=== PATIENT | female | born 1995 | race Caucasian/White ===

== ENCOUNTER 2019-09-03 16:11 | Outpatient (CLI) | payer OTHER ==
[~2019-09-03] VITALS: Ht 172.7 cm; Wt 71.8 kg
[2019-09-03 18:20] LABS: MICROSCOPIC INDICATED
== END 2019-09-03 17:25 | disposition home or self-care (01) ==
LOC: LDOP 16:11
PROVIDERS: ATTEND Obstetrics & Gynecology
DX: O36.8130 Decreased fetal movements, third trimester, not applicable or unspecified (principal); Z3A.29 29 weeks gestation of pregnancy
CPT/HCPCS: 59025; 76815; 81001; 87086; 99201; G0463

== ENCOUNTER 2019-11-06 23:55 | Outpatient (CLI) | payer OTHER ==
[~2019-11-06] VITALS: Ht 172.7 cm; Wt 80.0 kg
== END 2019-11-07 01:45 | disposition home or self-care (01) ==
LOC: LDOP 23:55
PROVIDERS: ATTEND Obstetrics & Gynecology
DX: O26.893 Other specified pregnancy related conditions, third trimester (principal); R10.9 Unspecified abdominal pain; Z3A.39 39 weeks gestation of pregnancy
CPT/HCPCS: 59025; 99211; G0463

== ENCOUNTER 2019-11-08 15:02 | Inpatient (IN) | payer OTHER ==
[~2019-11-08] VITALS: Ht 172.7 cm; Wt 80.0 kg
[2019-11-08 16:06] VITALS: BP 136/68
[2019-11-08] MEDS ORDERED: OXYTOCIN 30U/ 0.9% NaCL 500ML 500 ML IV ONE (17:04)
[2019-11-08] MEDS ORDERED: D5%-LACTATED RINGERS 1,000 ML IV SCH (17:04)
[2019-11-08] MEDS: LACTATED RINGERS 1,000 ML IV SCH ×2 (17:04→18:35)
[2019-11-08] MEDS ORDERED: MISOPROSTOL 200 MCG TABLET ONE (17:21)
[2019-11-08] MEDS ORDERED: NEWBORN KIT ONE (17:21)
[2019-11-08] MEDS ORDERED: LIDOCAINE 1%, 20ML ONE ×2 (17:21→19:34)
[2019-11-08] MEDS ORDERED: ONDANSETRON 2MG/ML, 2ML IVPush PRN (17:30)
[2019-11-08] MEDS ORDERED: CALCIUM CARBONATE 500 MG TAB.CHEW PO PRN ×2 (17:30→20:00)
[2019-11-08] MEDS ORDERED: TERBUTALINE 1 MG/ML, 1ML IVPush PRN (17:30)
[2019-11-08] MEDS ORDERED: FENTANYL PF 100 MCG/2ML IVPush PRN (17:30)
[2019-11-08] MEDS ORDERED: FENTANYL PF 100 MCG/2ML IV PRN (17:30)
[2019-11-08] MEDS ORDERED: TERBUTALINE 1 MG/ML, 1ML SQ PRN (17:30)
[2019-11-08 17:52] LABS: MEAN CORPUSCULAR HEMOGLOBIN 30.2 pg (27.0-34.8); MEAN CORPUSCULAR HGB CONC 33.1 g/dL (32.4-35.8); MEAN CORPUSCULAR VOLUME 91.2 fL (80-100); MEAN PLATELET VOLUME 8.1 fL (7.4-10.4); PLATELET COUNT 255 x10^3/uL (130-400); RED BLOOD COUNT 4.15 x10^6/uL (3.82-5.3); RED CELL DISTRIBUTION WIDTH 13.5 % (9.6-15.2)
[2019-11-08] MEDS ORDERED: OXYTOCIN 30U/ 0.9% NaCL 500ML 500 ML ONE (18:02)
[2019-11-08 18:26] LABS: BASOPHILS # (AUTO) 0.03 x10^3/uL (0-0.1); BASOPHILS % (AUTO) 0 % (0-1); EOSINOPHILS % (AUTO) 0 % (1-7); LYMPHOCYTES # (AUTO) 1.55 x10^3/uL (1-3.4); LYMPHOCYTES % (AUTO) 10 % (22-44); MD SCAN; MONOCYTES # (AUTO) 0.62 x10^3/uL (0.2-0.8); MONOCYTES % (AUTO) 4 % (2-9); NEUTROPHILS # (AUTO) 13.68 x10^3/uL (1.8-6.8); NEUTROPHILS % (AUTO) 86 % (42-75)
[2019-11-08] MEDS: OXYTOCIN 30U/ 0.9% NaCL 500ML 500 ML IV SCH (19:49)
[2019-11-08] MEDS ORDERED: SIMETHICONE 80 MG CHEW TAB PO PRN (20:00)
[2019-11-08] MEDS ORDERED: ONDANSETRON 2MG/ML, 2ML IV PRN (20:00)
[2019-11-08] MEDS ORDERED: MISOPROSTOL 200 MCG TABLET PO PRN (20:00)
[2019-11-08] MEDS ORDERED: OXYcodone/APAP 5/325MG TABLET PO PRN ×2 (20:00)
[2019-11-08] MEDS ORDERED: METHYLERGONOVINE 0.2 MG/ML IM PRN (20:00)
[2019-11-08 21:45] VITALS: BP 105/67
[2019-11-09 01:20] VITALS: BP 103/65
[2019-11-09] MEDS: IBUPROFEN 600 MG TABLET PO PRN ×2 (01:28→12:03)
[2019-11-09 02:08] LABS: MEAN CORPUSCULAR HEMOGLOBIN 30.4 pg (27.0-34.8); MEAN CORPUSCULAR VOLUME 92.2 fL (80-100); MEAN PLATELET VOLUME 8.2 fL (7.4-10.4); PLATELET COUNT 231 x10^3/uL (130-400); RED BLOOD COUNT 3.72 x10^6/uL (3.82-5.3); RED CELL DISTRIBUTION WIDTH 13.2 % (9.6-15.2)
[2019-11-09 02:33] LABS: BASOPHILS # (AUTO) 0.13 x10^3/uL (0-0.1); BASOPHILS % (AUTO) 1 % (0-1); EOSINOPHILS % (AUTO) 0 % (1-7); LYMPHOCYTES % (AUTO) 8 % (22-44); MD SCAN; MONOCYTES # (AUTO) 0.82 x10^3/uL (0.2-0.8); MONOCYTES % (AUTO) 4 % (2-9); NEUTROPHILS # (AUTO) 18.69 x10^3/uL (1.8-6.8); NEUTROPHILS % (AUTO) 87 % (42-75)
[2019-11-09 05:30] VITALS: BP 100/61
[2019-11-09] MEDS: OXYTOCIN 30U/ 0.9% NaCL 500ML 500 ML IV SCH ×2 (05:49→15:49)
[2019-11-09 07:45] VITALS: BP 102/68
[2019-11-09] MEDS: DOCUSATE 100 MG CAPSULE PO PRN (07:59)
[2019-11-09] MEDS: PRENATAL VIT/IRON/FA 1 EACH TABLET PO SCH (07:59)
[2019-11-09 12:45] VITALS: BP 109/68
[2019-11-09 17:30] VITALS: BP 106/69
[2019-11-09 20:00] VITALS: BP 106/54
[2019-11-10 08:30] VITALS: BP 122/75
[2019-11-10] MEDS: PRENATAL VIT/IRON/FA 1 EACH TABLET PO SCH (09:00)
[2019-11-10] MEDS: DOCUSATE 100 MG CAPSULE PO PRN (09:30)
[2019-11-10] MEDS ORDERED: IBUP-1222 PO (15:01)
== END 2019-11-10 16:25 | disposition home or self-care (01) | DRG 807 ==
LOC: LDOP 15:02 → LDIP 17:26 → 2NW 21:25
PROVIDERS: ADMIT Obstetrics & Gynecology; ATTEND Obstetrics & Gynecology
PROC: 10E0XZZ Delivery of Products of Conception, External Approach (ICD-10-PCS; principal; 2019-11-08)
PROC: 0KQM0ZZ Repair Perineum Muscle, Open Approach (ICD-10-PCS; 2019-11-08)
DX: O77.0 Labor and delivery complicated by meconium in amniotic fluid (principal); Z37.0 Single live birth; O70.1 Second degree perineal laceration during delivery; Z3A.39 39 weeks gestation of pregnancy
CPT/HCPCS: 36415; 85025; 86592; 86850; 86900; G0378; J2590; J7120